=== PATIENT | male | born 1980 | race American Indian/Alaskan Native ===

== ENCOUNTER 2018-02-09 06:20 | Emergency (ER) | payer SELFPAY ==
[2018-02-09 06:48] VITALS: O2SAT 96
--- NOTE | 2018-02-09 07:53 | C.PDOC ---
History Of Present Illness 37yo male, otherwise well, comes to ER reporting right eye irritation and pain x 1 day. Patient states he had similar symptoms 1 week ago, and used Visine eye drops with relief. He states upon return of symptoms yesterday, he was evaluated at [facility] [place] where he was given "tear drops" and instructed to follow up with an superintendent container terminal. Patient states he used the eye drops with no relief, prompting ER visit; he has not followed up with superintendent container terminal yet. PMD: None Time Seen by Provider: 02/09/18 07:09 Chief Complaint (Nursing): ENT Problem History Per: Patient History/Exam Limitations: no limitations Onset/Duration Of Symptoms: Days Current Symptoms Are (Timing): Still Present Associated Symptoms: Pain Additional History Per: Patient Past Medical History Reviewed: Historical Data, Nursing Documentation, Vital Signs Vital Signs: Last Vital Signs Temp 98 F 02/09/18 06:41 Pulse 70 02/09/18 06:41 Resp 20 02/09/18 06:41 BP 150/100 H 02/09/18 06:41 Pulse Ox 96 02/09/18 06:41 - Medical History PMH: No Chronic Diseases Surgical History: No Surg Hx Family History: States: No Known Family Hx - Social History Hx Alcohol Use: Yes Hx Substance Use: No - Immunization History Hx Tetanus Toxoid Vaccination: No Hx Influenza Vaccination: No Hx Pneumococcal Vaccination: No Review Of Systems Except As Marked, All Systems Reviewed And Found Negative. Eyes: Positive for: Redness (right > left) Physical Exam - Physical Exam Appears: Non-toxic, No Acute Distress Skin: Normal Color Head: Atraumatic, Normacephalic Eye(s): bilateral: PERRL, EOMI, Other (bilateral conjunctival injection, right > left) Neurological/Psych: Oriented x3 ED Course And Treatment O2 Sat by Pulse Oximetry: 96 (RA) Pulse Ox Interpretation: Normal Progress Note: Patient informed on need for follow up with opthlamologist. Patient also given prescription for antibiotic eye drops and instructed to use them based on opthalmologist recommendation. Patient stable for discharge home. Disposition - Disposition Referrals: Frandy Osorio MD [Staff Provider] - Disposition: HOME/ ROUTINE Disposition Time: 07:50 Condition: STABLE Additional Instructions: Follow up with Assistant Accounting Manager MADELYN. Return to ED if feel worse. 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 - Scribe Statement The provider has reviewed the documentation as recorded by the Abiele Bharti Menon Provider Attestation: All medical record entries made by the Aniyah were at my direction and personall y dictated by me. I have reviewed the chart and agree that the record accurately reflects my personal performance of the history, physical exam, medical decision making, and the department course for this patient. I have also personally directed, reviewed, and agree with the discharge instructions and disposition.
[2018-02-09 08:27] VITALS: BP 151/83; PULSE 59; RESP 18; TEMP 98.6
== END 2018-02-09 07:55 | disposition home or self-care (01) ==
LOC: C.ER 06:20
DX: H10.9 Unspecified conjunctivitis (principal)